=== PATIENT | male | born 1985 ===

== ENCOUNTER 2024-06-09 08:11 | Outpatient (CLI) | payer BC, SELFPAY | END 2024-06-09 08:12 | disposition home or self-care (01) | LOC: NFLDREF 06-10 02:59 | PROVIDERS: PCP Family Medicine; Referring Provider Family Medicine; Visit Provider Family Medicine | DX: Z13.1 Encounter for screening for diabetes mellitus (principal); Z13.6 Encounter for screening for cardiovascular disorders; Z12.5 Encounter for screening for malignant neoplasm of prostate | CPT/HCPCS: 80061; 82947; G0103 ==